=== PATIENT | female | born 1955 | race Caucasian/White ===

== ENCOUNTER → 2017-02-15 | Day surgery (SDC) | payer OTHER ==
[~2017-02-15] MED LIST: ACETAMINOPHEN/HYDROcodone 325 MG/5 MG TAB ONE; BUPIVACAINE/EPINEPHRINE 0.25% 50 ML VIAL ONE; BUPR150T3; ISOSULFAN BLUE 50 MG/5 ML VIAL SQ ONE; KRILL OIL; LEVO.15; MIDAZOLAM HCL 2 MG/2 ML VIAL ONE; NEOMYCIN/POLYMYXIN/BACITRACIN OINT 15 GM TUBE ONE; ONDANSETRON HCL 4 MG/2 ML VIAL IV PUSH ONE; OXYC-360; PROPOFOL 200 MG/20 ML AMP IV ONE; PROZ20CA11; VIT D 3; ceFAZolin 2 GM PREMIX 50 ML ONE; diphenhydrAMINE HCL 50 MG/ML VIAL ONE
--- NOTE | 2017-02-15 14:05 | TN ---
cc: ANNELIESE CAMACHO M.D. DATE OF SURGERY: 02/15/2017 PREOPERATIVE DIAGNOSIS Left breast cancer. POSTOPERATIVE DIAGNOSIS Left breast cancer. PROCEDURE PERFORMED 1. Needle-localized left breast lumpectomy. 2. Injection and excision left axillary sentinel node x2. 3. Implantation of ANASTASIIA MARIANNA device. SURGEON Anneliese Camacho MD MARKET REPORTER HUMERA Voss ANESTHESIA General LMA. COMPLICATIONS None. INDICATIONS FOR PROCEDURE Ms. Blair is a very pleasant 61-year-old female who is noted to have a mammographic abnormality in the left breast. She underwent percutaneous biopsy and was found to be a small left breast cancer. She was seen and evaluated in the office. She was offered lumpectomy and sentinel node excision versus mastectomy. She elected lumpectomy. She was also offered whole breast, partial breast and intraoperative breast irradiation. She initially chose intraoperative radiation therapy. However, her insurance company declined this and she therefore elected to go with ANASTASIIA partial breast irradiation. Risks and benefits of all procedures was discussed with her and she was agreeable. INTRAOPERATIVE FINDINGS [place] lymph node was easily identified in the left axilla with multiple blue channels going directly to it. It was slightly enlarged. It also had a 10-second count of 1004 ex vivo. The second sentinel node was not blue, was adjacent to the first node, was soft and pink and had a count of 214. DETAILS OF PROCEDURE The patient was identified, brought to the operating room and placed supine on the operating table. After adequate general anesthesia was achieved with LMA, the right breast was injected with 5 ccs of isosulfan blue in the periareolar position as well as in the wire localization which occurred in the upper outer quadrant of the left breast. This was then massaged in the breast. The left breast and axilla was then prepped and draped in standard surgical fashion. Attention was first directed to the left axilla. The approximate location of the sentinel node was marked by radiology. Using the probe we confirmed the location. 0.25% Marcaine was injected and a transverse incision was made. Dissection was carried down into the subcutaneous fat into the axilla proper. Immediately we encountered two blue channels going directly to a blue node. This was grasped with Allis clamp and dissected from surrounding tissue with a generous margin. This was excised and then checked and found to have a 10-second count, ex vivo of 1004. This was labeled sentinel node number one. Adjacent to this node was also a node that demonstrated moderate amount of activity with the probe. This was grasped with Allis clamp and dissected from surrounding tissue using electrocautery Bovie. There was no blue dye in this node. This node was soft and pink. The ex vivo count was found to be 214 on the 10-second count. After we did this there was no other blue dye in the axilla. There was no palpable nodes. There was no significant radioactivity with the probe noted. At this point we felt confident that we had the sentinel node. Wound was copiously irrigated with normal saline solution. Wound was then infiltrated with 10 ccs of 0.25% Marcaine and closed in two layers using a 3-0 and 4-0 Vicryl. Sterile dressings were applied. Next, attention was directed to the left breast. On the left breast the patient had a wire localization in the upper outer quadrant of the left breast. We elected to use a periareolar hidden scar technique. 0.25% Marcaine was injected into the skin and subcutaneous tissue from 12 o'clock to 3 o'clock. The 12 o'clock to 3 o'clock periareolar incision was then made. Subcutaneous breast tissue was then dissected with electrocautery Bovie. Next, dissection proceeded superiorly about 2 cm above the wire using electrocautery Bovie. Dissection proceeded down to the chest wall. The tip of the wire was identified. The mass was noted to be between the tip and the hugo. We therefore used generous margins in all directions to circumferentially dissect the breast tissue away from the surrounding breast tissue. Once the wire was dissected 360 degrees, it was transected at the skin and then the specimen pulled out. A short stitch was placed superior, the wire demarcated the lateral approach and the long stitch designated the medial portion of the specimen. By palpation the specimen was well-centered with generous margins in all directions. The specimen was sent down to radiology where Dr. Elizondo confirmed that the specimen was generous with the lesion noted to be in the central portion with significant margins of breast tissue circumferentially on imaging. Wound was copiously irrigated with normal saline solution. All loose bodies were removed. All bleeding points were controlled with electrocautery Bovie. Next, attention was directed to placement of the ANASTASIIA device. I elected to use lateral inferior approach to the ANASTASIIA device as this was upper outer and central lesion. 0.25% Marcaine was injected and a transverse incision was made. A subcutaneous tunnel was made with the hemostat and Liz clamp. Next, the ANASTASIIA MARIANNA device was inserted. We inflated it with 50 ccs of saline which generously filled the lumpectomy cavity. Attention was now directed to closure. Closure was accomplished using a two-layer technique, a 3-0 and 4-0 Vicryl. 10 ccs of 0.25% Marcaine was injected in the lumpectomy cavity at the end of the procedure. Sterile dressings were applied and the patient was awakened, brought to recovery in stable condition. Please note, the UNIX SYSTEMS ADMINISTRATOR assistant corporate secretary was medically necessary due to her extensive surgical knowledge and specialized training. She also has significant knowledge of my surgical technique. MD KADEEM Timmons/THERESA /1:16 PM /1:41 PM
== END | disposition home or self-care (01) ==
LOC: ESDC 06:20
PROVIDERS: ATTEND Surgery Trauma Surgery
DX: C50.412 Malignant neoplasm of upper-outer quadrant of left female breast (principal)
CPT/HCPCS: 00400; 01610; 19125; 19499; 38525; 38792; 88307; J0690; J1200; J2250; J2405; J3010; Q9968

== ENCOUNTER 2017-03-25 13:48 | Inpatient (IN) | payer OTHER ==
[~2017-03-25] VITALS: Ht 157.5 cm; Wt 58.7 kg
[~2017-03-25 13:48] MED LIST changes: -ACETAMINOPHEN/HYDROcodone 325 MG/5 MG TAB ONE; -BUPIVACAINE/EPINEPHRINE 0.25% 50 ML VIAL ONE; -ISOSULFAN BLUE 50 MG/5 ML VIAL SQ ONE; -MIDAZOLAM HCL 2 MG/2 ML VIAL ONE; -NEOMYCIN/POLYMYXIN/BACITRACIN OINT 15 GM TUBE ONE; -ONDANSETRON HCL 4 MG/2 ML VIAL IV PUSH ONE; -PROPOFOL 200 MG/20 ML AMP IV ONE; -ceFAZolin 2 GM PREMIX 50 ML ONE; -diphenhydrAMINE HCL 50 MG/ML VIAL ONE
[2017-03-25] MEDS ORDERED: ACETAMINOPHEN 325 MG TAB PO PRN (15:45)
[2017-03-25] MEDS ORDERED: PROCHLORPERAZINE INJ 10 MG/2 ML VIAL IV PUSH PRN (15:45)
[2017-03-25] MEDS ORDERED: ONDANSETRON INJ 8 MG in DEXTROSE 5% IN WATER INJ 50 ML IV PRN ×2 (15:45)
[2017-03-25] MEDS ORDERED: ALTEPLASE RECOMBINANT 2 MG VIAL IVF PRN ×2 (15:45→16:00)
[2017-03-25] MEDS ORDERED: LORazepam 0.5 MG TAB PO PRN (15:45)
[2017-03-25] MEDS ORDERED: LOPERAMIDE HCL 2 MG CAP PO PRN (15:45)
[2017-03-25] MEDS ORDERED: ALUMINUM/MAGNESIUM/SIMETH 30 ML CUP PO PRN (15:45)
[2017-03-25 15:46] VITALS: BP 114/65; PULSE 96; RESP 20; TEMP 99.9; O2SAT 99
[2017-03-25] MEDS ORDERED: SODIUM CHLORIDE 0.9% FLUSH 10 ML FLUSH IVF PRN (16:00)
--- NOTE | 2017-03-25 16:33 | PD.CONS ---
HPI History of Present Illness This is a 61 year old female with Stage IIA ER-positive left breast cancer, who was recently started on adjuvant systemic chemotherapy with Dr. Sigala. She had her chemotherapy on 03/19/17 and is now admitted with fever, neutropenia, thrombocytopenia, and abdominal cramping/pink tinged mucous from rectum. GI has been consulted for further evaluation and treatment. She reports that she had her first dose of chemotherapy with Taxotere and Cytoxan on Wednesday. Later that night and early Wednesday morning, she developed severe lower abdominal cramping with associated diarrhea consisting of small amounts of mucous. Initially, this was orange in color, but after several days, it turned to a pinkish color. The diarrhea is aggravated by oral intake. She states it doesn' t matter if she eats or drinks, she will almost immediately have to go to the bathroom. She has not been eating as much because of the abdominal cramping and has lost about 5 lbs. She has a hx of hemorrhoidectomy, fissure repair back in 1977 and states that she has since had poor sphincter tone and as a result, has had a few episodes of fecal incontinence. She denies nausea, vomiting. She has had fevers 99.5-100.0 and chills. She last had a colonoscopy 4 years ago and was told that she should have a colonoscopy every 5 years. (Drea Acevedo) PFSH Past Medical History Left breast cancer Hypothyroidism OA Osteoporosis Past Surgical History Bladder sling Left breast lumpectomy Left breast biopsy Hemorrhoidectomy Appendectomy Tonsillectomy Colonoscopy (Drea Acevdeo) Coded Allergies: erythromycin base (Unverified Allergy, Severe, 12/22/16) Sulfa (Sulfonamide Antibiotics) (Unverified Allergy, Mild, U, 12/22/16) Medications Allergies Coded Allergies Type Severity Reaction Last Updated Verified erythromycin base Allergy Severe 12/22/16 No Sulfa (Sulfonamide Antibiotics) Allergy Mild U 12/22/16 No Active Scripts Medications Dose Route/Sig Max Daily Dose Days Date Category Percocet (Oxycodone/Acetaminophen) 5 Mg/325 Mg Tab 02/21/07 Reported [Vit D 3 ] 02/18/07 Reported [Krill Oil] 02/18/07 Reported Bupropion Hcl Xl (Bupropion HCl) 150 Mg Tab 02/18/07 Reported Prozac (Fluoxetine HCl) 20 Mg Cap 02/18/07 Reported Synthroid (Levothyroxine Sodium) 150 Mcg Tab 02/18/07 Reported Family History Mother had MS, from colon cancer in her 80's Social History No tobacco, etoh, or illicit drug. (Drea Acevedo) Review of Systems Constitutional: COMPLAINS OF: Fatigue, Fever, Weight loss, Chills, Change in appetite Respiratory: DENIES: Cough Cardiovascular: DENIES: Chest pain Gastrointestinal: COMPLAINS OF: Abdominal pain, Diarrhea, Nausea, Anorexia, DENIES: Black stools, Bloody stools, Constipation, Vomiting, Swelling of Abdomen , Heartburn Musculoskeletal: COMPLAINS OF: Joint pain Hematologic/lymphatic: COMPLAINS OF: Bruising Neurologic: COMPLAINS OF: Headache Psychiatric: DENIES: Confusion (Drea Acevedo) GI Exam Vitals I&O Vital Signs Date Time Temp Pulse Resp B/P (MAP) Pulse Ox O2 Delivery O2 Flow Rate FiO2 03/25/17 15:46 99.9 96 20 114/65 (81) 99 Physical Examination HEENT: Pupils round and reactive to light; normocephalic; atraumatic; no jaundice. Throat is clear. NECK: Neck is supple, no JVD, no lymphadenopathy. CHEST: Chest is clear to auscultation and percussion. CARDIAC: Regular rate and rhythm with no murmur gallop or rubs. ABDOMEN: Soft, nondistended, nontender; no hepatosplenomegaly; bowel sounds are present in all four quadrants. EXTREMITIES: No clubbing, cyanosis, or edema. SKIN: Normal; no rash; no jaundice. GAS DERRICK OPERATOR: No focal deficits; alert and oriented times three. (Drea Acevedo) Assessment and Plan Plan ASSESSMENT: - Diarrhea, pink tinged. Started Taxotere/Cytoxan on 03/19 and started having frequent diarrhea with small amounts of mucous, initially orange and then pink tinged with small amount of blood on tissue when she wipes herself that night/early Wednesday. Multiple episodes per day, with any po intake. (+) decreased appetite, (+) abdominal cramping, (+) fever/chills. Last colonoscopy 4 years ago. Possibly secondary to chemotherapy, but will need to rule out infectious etiology. - Abdominal pain. Severe lower abdominal cramping associated with diarrhea. - Neutropenia, thrombocytopenia. WBC 1.4, H/H 12.0/36.1. Plt 68. Absolute neutrophils 0.5. Started Taxotere/Cytoxan 03/19. Received Neulasta with chemotherapy. Per hematology. - Left breast cancer, recent dx of Stage IIA ER-positive left breast cancer, who was recently started on adjuvant systemic chemotherapy with Dr. Sigala. Plan is for 4 months of chemotherapy and then radiation per patient. PLAN: - Clear liquids - IVF - Stool studies - If stool studies negative, consider antidiarrheals. - KUB pending. - Supportive care - Consider CT scan abdomen and pelvis - May need colonoscopy once neutropenia/thrombocytopenia, pending culture results/clinical status - Pt seen and examined by Dr. Dominguez and myself and this note is written on his behalf (Drea Acevedo) Physician Comments Patient seen and examined Agree with above Continue with current supportive care Monitor labs Probably will pursue endoscopy when blood counts have recovered and there's clinical improvement Await stool studies Further recommendations shall depend on her hospital course (Scott Dominguez MD) Drea Acevedo Mar 25, 2017 16:33 Scott Dominguez MD Mar 25, 2017 19:52
--- NOTE | 2017-03-25 16:51 | MH ---
cc: JOSEPH ALAMO M.D. DATE OF ADMISSION: 03/25/2017 ADMISSION DIAGNOSES 1. Breast cancer. 2. Neutropenic fever. 3. Abdominal cramps. 4. Diarrhea. 5. Pinkish discharge. HISTORY OF PRESENT ILLNESS Mrs. Blair is a 61-year-old woman newly diagnosed with a stage IIA, T1c N1a M0, ER positive left breast cancer. She had intermediate risk Oncotype DX testing and has elected to receive adjuvant chemotherapy. She has other medical problems including hypothyroidism, osteoarthritis and osteoporosis. She is recently and lives alone. Her first cycle of chemotherapy was administered on March 19, 2017. She received an On-body injector of Neulasta for support. She has felt unwell since her chemotherapy. A day prior to her admission she complains of fever at night. She had abdominal cramps lasting all night long that kept her awake. In the morning she called the clinic complaining of the symptoms of fever and abdominal cramps. Her temperature was documented to be 99.9. She reports that the temperature is higher at home. She feels chills. She has abdominal cramps and a mucousy type discharge from her stool. There is some blood tinge in the mucousy discharge from her stool. Labs in clinic showed the white cell count is 1.4, platelet count is 68,000. Her absolute neutrophil count is 300. She was admitted because of the fever and neutropenia associated with the abdominal cramps. In clinic cultures were obtained, amylase was normal, lipase is elevated. Liver function is normal. She looked ill and felt unwell. She denies any sick contact. She has trouble doing things for her at home. Her best friend who helps her is out on a cruise. She has very little help at home. She has three Chihuahuas that she has locked in the bathroom and she is worried about. PAST MEDICAL HISTORY 1. Hypothyroidism. 2. Osteoarthritis. 3. Osteoporosis. 4. ER positive left breast cancer. PAST SURGICAL HISTORY 1. Bladder sling. 2. Needle localized lumpectomy. 3. Left breast ultrasound-guided biopsy. 4. Hemorrhoid surgery. 5. Appendectomy. 6. Tonsillectomy. FAMILY HISTORY Significant for her mother with colon cancer and of colon cancer. Paternal grandmother had breast cancer. SOCIAL HISTORY She is , lives alone. She worked previously as a retail experience specialist. She never smoked. She drinks occasionally. Denies any illicit drug use. PHYSICAL EXAMINATION VITAL SIGNS: Temperature 99.9, heart rate 99, respiratory rate 18, blood pressure 104/60. GENERAL: Mrs. Blair is a well-developed, slender woman who looked ill. She looks tired. She has pallor. HEAD, EYES, EARS, NOSE AND THROAT: Her pupils are round and reactive to light and accommodation. Conjunctivae are pale. Oropharynx is clear, no thrush. NECK: Neck is supple. LUNGS: Lungs are clear. CARDIOVASCULAR: Reveals tachycardia. ABDOMEN: Diffusely tender with cramping. No rebound or guarding. Bowel sounds were present. LOWER EXTREMITIES: Lower extremities with no edema. LABORATORY DATA Significant for a white blood cell count of 1.4, ANC of 300, platelet count 68,000, lipase 60. ASSESSMENT AND PLAN Mrs. Blair is a 61-year-old woman with multiple medical problems described above. She comes in for unscheduled visit from toxicity related to her adjuvant chemotherapy with curative intent. We discussed the concern for fever, abdominal cramps and diarrhea. Evaluation for source of fever will be performed. In the meantime, in light of her neutropenia and fever empiric antibiotic therapy with cefepime will be initiated and continued. Blood cultures were obtained. We will monitor her clinically. She seems to be stable but has signs of sepsis with the tachycardia and feeling ill. She looks clinically dry as she has been unable to tolerate much p.o. GI will be consulted although I would defer until her counts recover before any procedure is performed. Stool will be checked. If C. Diff negative, we can use Imodium more liberally. I am concerned about her cramping and the pinkish discharge. Stool for Hemoccult will also be performed. Her hemoglobin will be monitored. Emotional support is provided. She was able to call some friends that will help take care of her animals. The main priority is her wellbeing. Antiemetic therapy will be available as needed. I anticipate her white count to recover given her Neulasta support administered 24 hours after her chemo. Dehydration will be corrected. Amylase and lipase will be followed. Joseph Bridgett E. Deveras, MD RAD/BJF /4:08 PM /4:22 PM
[2017-03-25] MEDS ORDERED: ENOXAPARIN SODIUM 40 MG/0.4 ML SYRINGE SQ SCH (18:00)
[2017-03-25] MEDS: traMADol HCL 50 MG TAB PO PRN (18:25)
[2017-03-25] MEDS: PANTOPRAZOLE SOD 20 MG DELAYED RELEASE TAB PO SCH (18:26)
--- NOTE | 2017-03-25 19:08 | RADRPT ---
EXAM DATE/TIME: 03/25/2017 18:41 [facility] COMPARISON: No previous studies available for comparison. INDICATIONS : Abdominal pain and cramping. MEDICAL HISTORY : None. SURGICAL HISTORY : None. ENCOUNTER: Subsequent ACUITY: 3 days PAIN SCORE: Non-responsive. LOCATION: Abdomen. FINDINGS: Supine view of the abdomen was performed. The abdominal bowel gas pattern is normal. Calcifications are seen in the pelvis. These are nonspecific. They are likely related to phleboliths. The osseous st ructures are unremarkable. CONCLUSION: No acute disease. Talat Mazariegos MD on March 25, 2017 at 19:05 Board Certified Radiologist. This report was verified electronically.
--- NOTE | 2017-03-25 19:10 | RADRPT ---
EXAM DATE/TIME: 03/25/2017 18:44 [facility] COMPARISON: No previous studies available for comparison. INDICATIONS : Fever- neutropenia. Rule out lung source. MEDICAL HISTORY : None. SURGICAL HISTORY : None. ENCOUNTER: Subsequent ACUITY: 3 days PAIN SCORE: Non-responsive. LOCATION: Bilateral chest FINDINGS: There is a CT compatible Yseunn-c-Coww placement in the left subclavian approach. The heart size is n ormal. The lungs are clear. CONCLUSION: No acute disease. Talat Mazariegos MD on March 25, 2017 at 19:08 Board Certified Radiologist. This report was verified electronically.
[2017-03-25] MEDS: CEFEPIME INJ 2,000 MG in SODIUM CHLORIDE 0.9% INJ 100 ML IV SCH (19:56)
[2017-03-25] MEDS ORDERED: CEFEPIME INJ 2,000 MG in SODIUM CHLORIDE 0.9% INJ 100 ML IV SCH (20:00)
[2017-03-25 20:05] VITALS: BP 121/62; PULSE 104; PULSE 105; RESP 14; TEMP 99.4; O2SAT 97
[2017-03-25 23:11] LABS: C. DIFF EPI 027 PRESUMPTIVE NEGATIVE (NEGATIVE)
[2017-03-25 23:45] VITALS: BP 110/60; PULSE 103; RESP 16; TEMP 98.7; O2SAT 96
[2017-03-26] VITALS (7 sets, daily range): BP systolic 90–101; BP diastolic 43–61; PULSE 77–94; RESP 14–18; TEMP 97.8–99.6; O2SAT 96–100
[2017-03-26] MEDS: CEFEPIME INJ 2,000 MG in SODIUM CHLORIDE 0.9% INJ 100 ML IV SCH ×3 (03:29→18:01)
[2017-03-26 04:11] LABS: AUTOMATED NEUTROPHIL # 1.3 TH/MM3 (1.8-7.7); BASOPHIL % 0.3 % (0.0-2.0); EOSINOPHIL # 0.1 TH/MM3 (0-0.4); EOSINOPHIL % 1.7 % (0.0-4.0); HEMATOCRIT 32.3 % (35.0-46.0); LYMPH % 31.5 % (9.0-44.0); MEAN CELL VOLUME 91.7 FL (80.0-100.0); MEAN CORPUSCULAR HEMOGLOBIN 30.7 PG (27.0-34.0); MEAN CORPUSCULAR HGB CONC 33.4 % (32.0-36.0); MONO % 26.5 % (0.0-8.0); PLATELET COUNT 68 TH/MM3 (150-450); RED BLOOD COUNT 3.52 MIL/MM3 (4.00-5.30); RED CELL DISTRIBUTION WIDTH 13.1 % (11.6-17.2); WHITE BLOOD COUNT 3.3 TH/MM3 (4.0-11.0)
[2017-03-26 04:27] LABS: ALT (GPT) 16 U/L (10-53); ANION GAP 9 MEQ/L (5-15); AST (GOT) 9 U/L (15-37); BICARBONATE 26.2 MEQ/L (21.0-32.0); BLOOD UREA NITROGEN 7 MG/DL (7-18); CHLORIDE 106 MEQ/L (98-107); GLOMERULAR FILTRATION RATE 96 ML/MIN (>89); POTASSIUM 3.5 MEQ/L (3.5-5.1); SODIUM (NA) 141 MEQ/L (136-145)
[2017-03-26 04:29] LABS: ALKALINE PHOSPHATASE 75 U/L (45-117); TOTAL BILIRUBIN ADULT 0.2 MG/DL (0.2-1.0)
[2017-03-26 04:31] LABS: HEMO FLAGS AUTO DIFF
[2017-03-26 05:01] LABS: BANDS 25 % (0-6); EOSINOPHILS 1 % (0-4); METAMYELOCYTES 3 % (0-1); MYELOCYTES 2 % (0-0); NEUTROPHIL # MANUAL DIFF 1.2 TH/MM3 (1.8-7.7); PLATELET ESTIMATE SMEAR LOW (NORMAL); POLYS (SEG NEUTROPHILS) 5 % (16-70); PROMYELOCYTES 1 % (0-0); SCAN/DIFF FINAL DIFF MANUAL; WBC DIFF SAMPLE 100
[2017-03-26 05:02] LABS: DOHLE BODIES PRESENT (NONE SEEN); PLATELET MORPHOLOGY ENLARGED (NORMAL)
[2017-03-26] MEDS: traMADol HCL 50 MG TAB PO PRN (05:12)
[2017-03-26] MEDS ORDERED: BUTA1CAP PO (05:27)
[2017-03-26] MEDS ORDERED: DEXT 5%-NACL 0.9% 1000 ML INJ 500 ML IV ONE (08:45)
[2017-03-26] MEDS ORDERED: DEXT 5%-NACL 0.9% 500 ML INJ 500 ML IV ONE (08:45)
[2017-03-26] MEDS ORDERED: ACETAMINOPHEN 325 MG TAB PO ONE (08:45)
[2017-03-26] MEDS: PANTOPRAZOLE SOD 20 MG DELAYED RELEASE TAB PO SCH (09:48)
--- NOTE | 2017-03-26 13:13 | HHI.GIFU ---
Subjective Remarks Pt resting in bed comfortably. Reports 2 BMs today with continued pinkish mucous in them. Mild, diffuse abdominal pain. Denies nausea, vomiting. Reports decreased appetite. Ate approx 1/3 of her breakfast, has not had lunch yet. (Drea Acevedo) Objective Vitals I&O Vital Signs Date Time Temp Pulse Resp B/P (MAP) Pulse Ox O2 Delivery O2 Flow Rate FiO2 03/26/17 12:58 98.7 79 16 90/43 (59) 97 03/26/17 09:47 97.8 94 16 101/52 (68) 96 03/26/17 03:27 99.1 91 14 98/50 (66) 97 03/25/17 23:45 98.7 103 16 110/60 (77) 96 03/25/17 20:05 104 03/25/17 20:05 99.4 105 14 121/62 (81) 97 03/25/17 15:46 99.9 96 20 114/65 (81) 99 I/O 03/25/17 03/25/17 03/25/17 03/26/17 03/26/17 03/26/17 07:00 15:00 23:00 07:00 15:00 23:00 Intake Total 100 ml 580 ml 101 ml Output Total 300 ml 950 ml Balance 100 ml 280 ml -849 ml Intake Oral 480 ml IV Total 100 ml 100 ml 101 ml Output Urine Total 300 ml 950 ml # Voids 1 3 # Bowel Movements 3 Laboratory Laboratory Tests Test 03/25/17 20:43 03/26/17 03:35 Stool C. difficile Toxin (PCR) NEGATIVE Stl C. difficile Toxin Epiderm 027 PRESUMPTIVE NEGATIVE White Blood Count 3.3 Red Blood Count 3.52 Hemoglobin 10.8 Hematocrit 32.3 Mean Corpuscular Volume 91.7 Mean Corpuscular Hemoglobin 30.7 Mean Corpuscular Hemoglobin Concent 33.4 Red Cell Distribution Width 13.1 Platelet Count 68 Mean Platelet Volume 9.4 Neutrophils (%) (Auto) 40.0 Lymphocytes (%) (Auto) 31.5 Monocytes (%) (Auto) 26.5 Eosinophils (%) (Auto) 1.7 Basophils (%) (Auto) 0.3 Neutrophils # (Auto) 1.3 Lymphocytes # (Auto) 1.0 Monocytes # (Auto) 0.9 Eosinophils # (Auto) 0.1 Basophils # (Auto) 0.0 CBC Comment AUTO DIFF Differential Total Cells Counted 100 Neutrophils % (Manual) 5 Band Neutrophils % 25 Lymphocytes % 39 Monocytes % 24 Eosinophils % 1 Neutrophils # (Manual) 1.2 Metamyelocytes 3 Myelocytes 2 Promyelocytes 1 Differential Comment FINAL DIFF MANUAL Dohle Bodies PRESENT Platelet Estimate LOW Platelet Morphology Comment ENLARGED Red Cell Morphology Comment NORMAL Blood Urea Nitrogen 7 Creatinine 0.63 Random Glucose 88 Total Protein 5.5 Albumin 2.6 Calcium Level 8.1 Alkaline Phosphatase 75 Aspartate Amino Transf (AST/SGOT) 9 Alanine Aminotransferase (ALT/SGPT) 16 Total Bilirubin 0.2 Sodium Level 141 Potassium Level 3.5 Chloride Level 106 Carbon Dioxide Level 26.2 Anion Gap 9 Estimat Glomerular Filtration Rate 96 Lipase 52 Date/Time Source Procedure Growth Status 03/25/17 20:43 Stool Stool Cyclospora Exam Pending Resulted 03/25/17 20:43 Stool Stool Cryptosporidium Exam Pending Resulted 03/25/17 20:43 Stool Stool Stool Pus (ROMINA) - Final MANY WBC'S Resulted 03/25/17 20:43 Stool Stool Giardia Antigen ([facility]INA) Pending Resulted Imaging Last Impressions Chest X-Ray 03/25/17 0000 Signed Impressions: Service Date/Time: March 18:44 - CONCLUSION: No acute disease. Talat Mazariegos MD Abdomen X-Ray 03/25/17 0000 Signed Impressions: Service Date/Time: March 18:41 - CONCLUSION: No acute disease. Talat Mazariegos MD Physical Exam HEENT: Normocephalic; atraumatic; no jaundice. CHEST: CTA, diminished CARDIAC: RRR ABDOMEN: Soft, nondistended, mild diffuse tenderness; no hepatosplenomegaly; bowel sounds are present in all four quadrants. EXTREMITIES: No clubbing, cyanosis, or edema. SKIN: Normal; no rash; no jaundice. DEVELOPMENT CONSULTANT: No focal deficits; alert and oriented times three. (Drea Acevedo) Assessment and Plan Plan ASSESSMENT: - Diarrhea, pink tinged. Started Taxotere/Cytoxan on 03/19 and started having frequent diarrhea with small amounts of mucous, initially orange and then pink tinged with small amount of blood on tissue when she wipes herself that night/early Wednesday. Multiple episodes per day, with any po intake. (+) decreased appetite, (+) abdominal cramping, (+) fecal urgency (+) fever/chills. Last colonoscopy 4 years ago. Possibly secondary to chemotherapy, but will need to rule out infectious etiology. C Diff culture negative. Stool occult blood positive. Stool culture pending. 2 episodes of diarrhea today with continued pink tinged mucous. - Abdominal pain. Severe lower abdominal cramping associated with diarrhea. Has not had any episodes since yesterday. Does report some mild diffuse abdominal pain. KUB (03/25/17) --> No acute disease. - Neutropenia, thrombocytopenia. WBC 3.3, H/H 10.8/32.3. Plt 68. Started Taxotere/Cytoxan 03/19. Received Neulasta with chemotherapy. Per hematology. - Left breast cancer, recent dx of Stage IIA ER-positive left breast cancer, who was recently started on adjuvant systemic chemotherapy with Dr. Sigala. Plan is for 4 months of chemotherapy and then radiation per patient. PLAN: - [facility] - Stool studies pending - Imodium PRN - Supportive care - If stool studies are negative and clinical improvement then may pursue endoscopy early next week if labs are stable - Further recommendations to follow based on results of above - Pt seen and examined by Dr. Dominguez and myself and this note is written on his behalf (Drea Acevedo) Physician Comments Patient seen and examined Agree with above Continue with current supportive care Monitor labs (Scott Dominguez MD) Drea Acevedo Mar 26, 2017 13:13 Scott Dominguez MD Mar 26, 2017 17:47
--- NOTE | 2017-03-26 13:57 | PD.ONC.PN ---
Subjective Subjective Remarks Tmax 99.9 overnight. Patient resting in bed in nad. Mucous still present in bowel movements. Has a mild frontal headache present since this morning. Objective Data Date Time Temp Pulse Resp B/P (MAP) Pulse Ox O2 Delivery O2 Flow Rate FiO2 03/26/17 12:58 98.7 79 16 90/43 (59) 97 03/26/17 09:47 97.8 94 16 101/52 (68) 96 03/26/17 03:27 99.1 91 14 98/50 (66) 97 03/25/17 23:45 98.7 103 16 110/60 (77) 96 03/25/17 20:05 104 03/25/17 20:05 99.4 105 14 121/62 (81) 97 03/25/17 15:46 99.9 96 20 114/65 (81) 99 03/26/17 03/26/17 03/26/17 07:00 15:00 23:00 Intake Total 580 ml 101 ml Output Total 300 ml 950 ml Balance 280 ml -849 ml Result Diagram: 03/26/17 0335 03/26/17 0335 Laboratory Results Laboratory Tests Test 03/25/17 20:43 03/26/17 03:35 Stool C. difficile Toxin (PCR) NEGATIVE Stl C. difficile Toxin Epiderm 027 PRESUMPTIVE NEGATIVE White Blood Count 3.3 TH/MM3 Red Blood Count 3.52 MIL/MM3 Hemoglobin 10.8 GM/DL Hematocrit 32.3 % Mean Corpuscular Volume 91.7 FL Mean Corpuscular Hemoglobin 30.7 PG Mean Corpuscular Hemoglobin Concent 33.4 % Red Cell Distribution Width 13.1 % Platelet Count 68 TH/MM3 Mean Platelet Volume 9.4 FL Neutrophils (%) (Auto) 40.0 % Lymphocytes (%) (Auto) 31.5 % Monocytes (%) (Auto) 26.5 % Eosinophils (%) (Auto) 1.7 % Basophils (%) (Auto) 0.3 % Neutrophils # (Auto) 1.3 TH/MM3 Lymphocytes # (Auto) 1.0 TH/MM3 Monocytes # (Auto) 0.9 TH/MM3 Eosinophils # (Auto) 0.1 TH/MM3 Basophils # (Auto) 0.0 TH/MM3 CBC Comment AUTO DIFF Differential Total Cells Counted 100 Neutrophils % (Manual) 5 % Band Neutrophils % 25 % Lymphocytes % 39 % Monocytes % 24 % Eosinophils % 1 % Neutrophils # (Manual) 1.2 TH/MM3 Metamyelocytes 3 % Myelocytes 2 % Promyelocytes 1 % Differential Comment FINAL DIFF MANUAL Dohle Bodies PRESENT Platelet Estimate LOW Platelet Morphology Comment ENLARGED Red Cell Morphology Comment NORMAL Blood Urea Nitrogen 7 MG/DL Creatinine 0.63 MG/DL Random Glucose 88 MG/DL Total Protein 5.5 GM/DL Albumin 2.6 GM/DL Calcium Level 8.1 MG/DL Alkaline Phosphatase 75 U/L Aspartate Amino Transf (AST/SGOT) 9 U/L Alanine Aminotransferase (ALT/SGPT) 16 U/L Total Bilirubin 0.2 MG/DL Sodium Level 141 MEQ/L Potassium Level 3.5 MEQ/L Chloride Level 106 MEQ/L Carbon Dioxide Level 26.2 MEQ/L Anion Gap 9 MEQ/L Estimat Glomerular Filtration Rate 96 ML/MIN Lipase 52 U/L Culture Results Microbiology Date/Time Source Procedure Growth Status 03/25/17 20:43 Stool Stool Cyclospora Exam Pending Resulted 03/25/17 20:43 Stool Stool Cryptosporidium Exam Pending Resulted 03/25/17 20:43 Stool Stool Stool Pus (ROMINA) - Final MANY WBC'S Resulted 03/25/17 20:43 Stool Stool Giardia Antigen (ROMINA) Pending Resulted 03/25/17 20:43 Stool Stool Pending Received 03/25/17 20:43 Stool Stool Stool Occult Blood (ROMINA) - Final HEMOCCULT POSITIVE Complete Administered Medications Medications (Trade) Dose Ordered Sig/Jacinda Route PRN Reason Start Time Stop Time Status Last Admin Dose Admin Oxycodone HCl (Roxicodone) 5 mg Q3H PRN PO PAIN SCALE 4 TO 7 03/25/17 15:45 03/26/17 13:03 Cefepime HCl 2000 mg/Sodium Chloride 100 ml @ 200 mls/hr Q8H IV 03/25/17 18:00 03/26/17 09:49 Pantoprazole Sodium (Protonix) 20 mg DAILY PO 03/25/17 16:30 03/26/17 09:48 Tramadol HCl (Ultram) 50 mg Q6H PRN PO ARTHRITIS 03/25/17 16:30 03/26/17 05:12 Objective Remarks GENERAL: Middle aged female sitting up in bed in [employer]. SKIN: Warm and dry. HEAD: Normocephalic. EYES: No injection or drainage. NECK: Supple, trachea midline. CARDIOVASCULAR: Regular rate and rhythm RESPIRATORY: anterior peralta clear. GASTROINTESTINAL: Abdomen soft, non-tender, nondistended. EXTREMITIES: No cyanosis NEUROLOGICAL: awake and alert, normal speech. moving all extremities. Assessment/Plan Problem List: (1) Breast cancer ICD Codes: C50.919 - Malignant neoplasm of unspecified site of unspecified female breast Plan: plan for outpatient therapy --first cycle of chemotherapy was administered on March 19, 2017. --received an On-body injector of Neulasta for support. --as felt unwell since her chemotherapy. --A day prior to her admission she complains of fever at night. She had abdominal cramps lasting all night long that kept her awake. --has abdominal cramps and a mucous type discharge from her stool. There is some blood tinge in the mucous discharge from her stool. (2) Pancytopenia ICD Codes: D61.818 - Other pancytopenia Plan: --on Cefepime --fever, abdominal cramps and diarrhea. --blood cultures no growth --stool cultures pending (3) Diarrhea ICD Codes: R19.7 - Diarrhea, unspecified Plan: --GI following. --stool studies pending Assessment 61y/o female with newly diagnosed with a stage IIA, T1c N1a M0, ER positive left breast cancer. She had intermediate risk Oncotype DX testing and has elected to receive adjuvant chemotherapy. Admitted for neutropenia. Hypothyroidism. Osteoarthritis. Osteoporosis. ER positive left breast cancer. Plan 1. continue antibiotics 2. await stool studies 3. monitor CBC Attending Statement The exam, history, and the medical decision-making described in the above note were completed with the assistance of the mid-level provider. I reviewed and agree with the findings presented. I attest that I had a [id number] encounter with the patient on the same day, and personally performed and documented my assessment and findings in the medical record. Feeling still tired in AM. Noted clinically dry. Heme positive, stop DVT prophylaxis. GI consult appreciated, continue supportive care. Neutropenia resolving. Problem Qualifiers (1) Diarrhea: Qualified Codes: A09 - Infectious gastroenteritis and colitis, unspecified Lexy Verdugo Mar 26, 2017 13:57 Sofía Sigala MD Mar 26, 2017 19:19
[2017-03-27] VITALS (7 sets, daily range): BP systolic 96–110; BP diastolic 54–66; PULSE 80–92; RESP 16–18; TEMP 98.7–100; O2SAT 96–97
[2017-03-27] MEDS: CEFEPIME INJ 2,000 MG in SODIUM CHLORIDE 0.9% INJ 100 ML IV SCH ×2 (03:36→09:48)
[2017-03-27 06:30] LABS: HEMATOCRIT 31.3 % (35.0-46.0); MEAN CELL VOLUME 91.7 FL (80.0-100.0); MEAN CORPUSCULAR HGB CONC 33.8 % (32.0-36.0); PLATELET COUNT 92 TH/MM3 (150-450); RED BLOOD COUNT 3.41 MIL/MM3 (4.00-5.30); RED CELL DISTRIBUTION WIDTH 13.1 % (11.6-17.2); WHITE BLOOD COUNT 16.9 TH/MM3 (4.0-11.0)
[2017-03-27 07:05] LABS: ANION GAP 7 MEQ/L (5-15); AST (GOT) 13 U/L (15-37); BICARBONATE 26.5 MEQ/L (21.0-32.0); BLOOD UREA NITROGEN 6 MG/DL (7-18); CHLORIDE 109 MEQ/L (98-107); GLOMERULAR FILTRATION RATE 88 ML/MIN (>89); POTASSIUM 3.6 MEQ/L (3.5-5.1); SODIUM (NA) 142 MEQ/L (136-145)
[2017-03-27 07:09] LABS: ALKALINE PHOSPHATASE 81 U/L (45-117); ALT (GPT) 13 U/L (10-53); TOTAL BILIRUBIN ADULT 0.1 MG/DL (0.2-1.0)
[2017-03-27 07:30] LABS: HEMO FLAGS AUTO DIFF
[2017-03-27 07:33] LABS: BANDS 28 % (0-6); BASOPHILS 1 % (0-2); DOHLE BODIES PRESENT (NONE SEEN); METAMYELOCYTES 7 % (0-1); MYELOCYTES 4 % (0-0); NEUTROPHIL # MANUAL DIFF 14.2 TH/MM3 (1.8-7.7); PLATELET ESTIMATE SMEAR LOW (NORMAL); PLATELET MORPHOLOGY NORMAL (NORMAL); POLYS (SEG NEUTROPHILS) 45 % (16-70); TOXIC GRANULATION 2+ (NORMAL); WBC DIFF SAMPLE 100
[2017-03-27 07:34] LABS: SCAN/DIFF FINAL DIFF MANUAL
[2017-03-27] MEDS: PANTOPRAZOLE SOD 20 MG DELAYED RELEASE TAB PO SCH (09:48)
--- NOTE | 2017-03-27 12:12 | HHI.GIFU ---
Subjective Remarks Pt resting in bed. C/o migraine. No BM today. Some abd discomfort after eating dinner but improved. (Luisa Ortiz) Objective Vitals I&O Vital Signs Date Time Temp Pulse Resp B/P (MAP) Pulse Ox O2 Delivery O2 Flow Rate FiO2 03/27/17 04:18 89 03/27/17 03:34 99.3 89 18 96/54 (68) 97 03/26/17 23:57 99.6 82 18 99/53 (68) 97 03/26/17 20:00 83 03/26/17 19:52 99.2 92 18 96/61 (73) 100 03/26/17 15:46 98.7 77 16 98/56 (70) 98 03/26/17 12:58 98.7 79 16 90/43 (59) 97 I/O 03/26/17 03/26/17 03/26/17 03/27/17 03/27/17 03/27/17 07:00 15:00 23:00 07:00 15:00 23:00 Intake Total 580 ml 101 ml 601 ml 480 ml Output Total 300 ml 950 ml 900 ml 700 ml Balance 280 ml -849 ml -299 ml -220 ml Intake Oral 480 ml 480 ml IV Total 100 ml 101 ml 601 ml Output Urine Total 300 ml 950 ml 900 ml 700 ml # Voids 3 Laboratory Laboratory Tests Test 03/27/17 05:37 White Blood Count 16.9 Red Blood Count 3.41 Hemoglobin 10.6 Hematocrit 31.3 Mean Corpuscular Volume 91.7 Mean Corpuscular Hemoglobin 31.0 Mean Corpuscular Hemoglobin Concent 33.8 Red Cell Distribution Width 13.1 Platelet Count 92 Mean Platelet Volume 9.4 CBC Comment AUTO DIFF Differential Total Cells Counted 100 Neutrophils % (Manual) 45 Band Neutrophils % 28 Lymphocytes % 9 Monocytes % 6 Basophils % 1 Neutrophils # (Manual) 14.2 Metamyelocytes 7 Myelocytes 4 Differential Comment FINAL DIFF MANUAL Toxic Granulation 2+ Dohle Bodies PRESENT Platelet Estimate LOW Platelet Morphology Comment NORMAL Blood Urea Nitrogen 6 Creatinine 0.68 Random Glucose 90 Total Protein 5.7 Albumin 2.4 Calcium Level 8.2 Alkaline Phosphatase 81 Aspartate Amino Transf (AST/SGOT) 13 Alanine Aminotransferase (ALT/SGPT) 13 Total Bilirubin 0.1 Sodium Level 142 Potassium Level 3.6 Chloride Level 109 Carbon Dioxide Level 26.5 Anion Gap 7 Estimat Glomerular Filtration Rate 88 Date/Time Source Procedure Growth Status 03/25/17 20:43 Stool Stool Cyclospora Exam - Final NO CYCLOSPORA SEEN Resulted 03/25/17 20:43 Stool Stool Cryptosporidium Exam Pending Resulted 03/25/17 20:43 Stool Stool Stool Pus (ROMINA) - Final MANY WBC'S Resulted 03/25/17 20:43 Stool Stool Giardia Antigen (ROMINA) Pending Resulted Imaging Last Impressions Chest X-Ray 03/25/17 0000 Signed Impressions: Service Date/Time: March 18:44 - CONCLUSION: No acute disease. Talat Mazariegos MD Abdomen X-Ray 03/25/17 0000 Signed Impressions: Service Date/Time: March 18:41 - CONCLUSION: No acute disease. Talat Mazariegos MD Physical Exam HEENT: Normocephalic; atraumatic; no jaundice. CHEST: CTA, diminished CARDIAC: RRR ABDOMEN: Soft, nondistended, mild diffuse tenderness; no hepatosplenomegaly; bowel sounds are present in all four quadrants. EXTREMITIES: No clubbing, cyanosis, or edema. SKIN: Normal; no rash; no jaundice. 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 (Luisa Ortiz [facility]) Assessment and Plan Plan ASSESSMENT: - Diarrhea, pink tinged. Started Taxotere/Cytoxan on 03/19 and started having frequent diarrhea with small amounts of mucous, initially orange and then pink tinged with small amount of blood on tissue when she wipes herself that night/early Wednesday. Multiple episodes per day, with any po intake. (+) decreased appetite, (+) abdominal cramping, (+) fecal urgency (+) fever/chills. Last colonoscopy 4 years ago. Possibly secondary to chemotherapy, but will need to rule out infectious etiology. C Diff culture negative. Stool occult blood positive. No BM today. +many WBCs stool. enteric pathogens neg. giardia & cryptosporidia pending. - Abdominal pain. seems improved, had some discomfort yesterday after dinner but it improved. none today. KUB (03/25/17) --> No acute disease. - Neutropenia, thrombocytopenia. WBC up to 16 today Started Taxotere/Cytoxan . Received Neulasta with chemotherapy. Per hematology. - Left breast cancer, recent dx of Stage IIA ER-positive left breast cancer, who was recently started on adjuvant systemic chemotherapy with Dr. Sigala. Plan is for 4 months of chemotherapy and then radiation per patient. PLAN: - [facility] - await giardia, cryptosporidia - Imodium PRN - Supportive care - ?endoscopy next week - Further recommendations to follow based on results of above - Pt seen and examined by Dr. Dominguez and myself and this note is written on his behalf (Luisa Ortiz) Physician Comments Patient seen and examined Agree with above Continue with current supportive care Monitor labs We'll proceed with EGD and a colonoscopy on Wednesday (Scott Dominguez MD) Luisa Ortiz Mar 27, 2017 12:11 Scott Dominguez MD Mar 27, 2017 20:30
[2017-03-27] MEDS ORDERED: SUMAtriptan SUCCINATE 50 MG TAB PO PRN (12:15)
--- NOTE | 2017-03-27 12:16 | PD.ONC.PN ---
Subjective Subjective Remarks Afebrile overnight. Patient having global headache which she describes as a migraine. She states she has frequently had these in the past and they are usually improved with Imitrex. She states she has had them in increasing frequency since her chemotherapy was administered last week. Objective Data Date Time Temp Pulse Resp B/P (MAP) Pulse Ox O2 Delivery O2 Flow Rate FiO2 03/27/17 04:18 89 03/27/17 03:34 99.3 89 18 96/54 (68) 97 03/26/17 23:57 99.6 82 18 99/53 (68) 97 03/26/17 20:00 83 03/26/17 19:52 99.2 92 18 96/61 (73) 100 03/26/17 15:46 98.7 77 16 98/56 (70) 98 03/26/17 12:58 98.7 79 16 90/43 (59) 97 03/27/17 03/27/17 03/27/17 07:00 15:00 23:00 Intake Total 480 ml Output Total 700 ml Balance -220 ml Result Diagram: 03/27/17 0537 03/27/17 0537 Laboratory Results Laboratory Tests Test 03/27/17 05:37 White Blood Count 16.9 TH/MM3 Red Blood Count 3.41 MIL/MM3 Hemoglobin 10.6 GM/DL Hematocrit 31.3 % Mean Corpuscular Volume 91.7 FL Mean Corpuscular Hemoglobin 31.0 PG Mean Corpuscular Hemoglobin Concent 33.8 % Red Cell Distribution Width 13.1 % Platelet Count 92 TH/MM3 Mean Platelet Volume 9.4 FL CBC Comment AUTO DIFF Differential Total Cells Counted 100 Neutrophils % (Manual) 45 % Band Neutrophils % 28 % Lymphocytes % 9 % Monocytes % 6 % Basophils % 1 % Neutrophils # (Manual) 14.2 TH/MM3 Metamyelocytes 7 % Myelocytes 4 % Differential Comment FINAL DIFF MANUAL Toxic Granulation 2+ Dohle Bodies PRESENT Platelet Estimate LOW Platelet Morphology Comment NORMAL Blood Urea Nitrogen 6 MG/DL Creatinine 0.68 MG/DL Random Glucose 90 MG/DL Total Protein 5.7 GM/DL Albumin 2.4 GM/DL Calcium Level 8.2 MG/DL Alkaline Phosphatase 81 U/L Aspartate Amino Transf (AST/SGOT) 13 U/L Alanine Aminotransferase (ALT/SGPT) 13 U/L Total Bilirubin 0.1 MG/DL Sodium Level 142 MEQ/L Potassium Level 3.6 MEQ/L Chloride Level 109 MEQ/L Carbon Dioxide Level 26.5 MEQ/L Anion Gap 7 MEQ/L Estimat Glomerular Filtration Rate 88 ML/MIN Culture Results Microbiology Date/Time Source Procedure Growth Status 03/25/17 20:43 Stool Stool Cyclospora Exam - Final NO CYCLOSPORA SEEN Resulted 03/25/17 20:43 Stool Stool Cryptosporidium Exam Pending Resulted 03/25/17 20:43 Stool Stool Stool Pus (ROMINA) - Final MANY WBC'S Resulted 03/25/17 20:43 Stool Stool Giardia Antigen (ROMINA) Pending Resulted 03/25/17 20:43 Stool Stool - Final NO ENTERIC PATHOGENS DETECTED BY PCR... Complete 03/25/17 20:43 Stool Stool Stool Occult Blood (ROMINA) - Final HEMOCCULT POSITIVE Complete Administered Medications Medications (Trade) Dose Ordered Sig/Jacinda Route PRN Reason Start Time Stop Time Status Last Admin Dose Admin Lorazepam (Ativan) 0.5 mg DAILY PRN PO anxiety or before procedure 03/25/17 15:45 03/26/17 23:58 Oxycodone HCl (Roxicodone) 5 mg Q3H PRN PO PAIN SCALE 4 TO 7 03/25/17 15:45 03/27/17 03:41 Acetaminophen (Tylenol) 650 mg Q4H PRN PO PAIN SCALE 0-3 OR TEMP> 100.5F 03/25/17 15:45 03/26/17 19:48 Sodium Chloride (NS Flush) 5 ml UNSCH PRN IVF SEE PROTOCOL 03/25/17 16:00 03/27/17 09:48 Pantoprazole Sodium (Protonix) 20 mg DAILY PO 03/25/17 16:30 03/27/17 09:48 Objective Remarks GENERAL: Middle aged female supine in bed in quiet dark room. SKIN: Warm and dry. HEAD: Normocephalic. EYES: No injection or drainage. NECK: Supple, trachea midline. CARDIOVASCULAR: Regular rate and rhythm RESPIRATORY: Breath sounds equal bilaterally. No accessory muscle use. GASTROINTESTINAL: Abdomen soft, non-tender, nondistended. EXTREMITIES: No cyanosis NEUROLOGICAL: No obvious focal deficit. Awake, alert, and oriented x3. Assessment/Plan Problem List: (1) Breast cancer ICD Codes: C50.919 - Malignant neoplasm of unspecified site of unspecified female breast Plan: plan for outpatient therapy --first cycle of chemotherapy was administered on March 19, 2017. --received an On-body injector of Neulasta for support. --as felt unwell since her chemotherapy. --A day prior to her admission she complains of fever at night. She had abdominal cramps lasting all night long that kept her awake. --has abdominal cramps and a mucous type discharge from her stool. There is some blood tinge in the mucous discharge from her stool. (2) Pancytopenia ICD Codes: D61.818 - Other pancytopenia Plan: --03/27: stop Cefepime, start Levaquin --fever, abdominal cramps and diarrhea. --blood cultures no growth --stool cultures pending (3) Diarrhea ICD Codes: R19.7 - Diarrhea, unspecified Plan: --GI following. --stool studies pending Assessment 61y/o female with newly diagnosed with a stage IIA, T1c N1a M0, ER positive left breast cancer. She had intermediate risk Oncotype DX testing and has elected to receive adjuvant chemotherapy. Admitted for neutropenia. Hypothyroidism. Osteoarthritis. Osteoporosis. ER positive left breast cancer. Plan 1. stop Cefepime, start Levaquin 2. start IVF 3. obtain MRI brain for headache 4. ok to give Imitrex for headache. Attending Statement The exam, history, and the medical decision-making described in the above note were completed with the assistance of the mid-level provider. I reviewed and agree with the findings presented. I attest that I had a [id number] encounter with the patient on the same day, and personally performed and documented my assessment and findings in the medical record. 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 Offered Imitrex, monitor response. Still nausea, clinically dry. Neutropenia resolved. Abd cramps resolved, no diarrhea this AM. Switch to oral antibiotic. Monitor cultures and low grade temp. Anticipate DC home tomorrow. Problem Qualifiers (1) Diarrhea: Qualified Codes: A09 - Infectious gastroenteritis and colitis, unspecified Lexy Verdugo Mar 27, 2017 12:16 Sofía Sigala MD Mar 27, 2017 19:46
[2017-03-27] MEDS: SODIUM CHLOR 0.9% 1000 ML INJ 1,000 ML IV SCH ×2 (13:33→21:58)
[2017-03-27] MEDS ORDERED: GADODIAMIDE PF 287 MG/ML 10 ML VIAL (for RAD MRI) IVCONTRAST ONE (15:50)
--- NOTE | 2017-03-27 17:48 | RADRPT ---
EXAM DATE/TIME: 03/27/2017 11:00 [place] COMPARISON: No previous studies available for comparison. INDICATIONS : Cephalgia. CONTRAST: 10 cc Omniscan (gadodiamide) IV MEDICAL HISTORY : Carcinoma, breast. SURGICAL HISTORY : Tonsillectomy. Appendectomy. ORIF Right arm ENCOUNTER: Initial ACUITY: 1 day PAIN SCORE: 5/10 LOCATION: cranial TECHNIQUE: Multiplanar, multisequence MRI of the brain was performed both prior to and following the administrat ion of paramagnetic contrast. FINDINGS: Diffusion weighted images demonstrate no evidence for acute infarction. The bone marrow signal intens ity is normal. The signal intensity of the brain is normal. No hemorrhage or mass. There is no eviden ce for metastatic disease to the brain. CONCLUSION: Normal examination. Kannan Worthington MD on March 27, 2017 at 17:44 Board Certified Radiologist. This report was verified electronically.
[2017-03-28] VITALS: BP 122/79; PULSE 82; RESP 15; TEMP 98.4; O2SAT 97
[2017-03-28 04:00] VITALS: BP 114/70; PULSE 81; RESP 16; TEMP 98.3; O2SAT 98
[2017-03-28 05:53] LABS: AUTOMATED NEUTROPHIL # 12.2 TH/MM3 (1.8-7.7); BASOPHIL % 0.2 % (0.0-2.0); EOSINOPHIL # 0.1 TH/MM3 (0-0.4); EOSINOPHIL % 0.5 % (0.0-4.0); HEMATOCRIT 32.4 % (35.0-46.0); LYMPH % 10.5 % (9.0-44.0); LYMPHOCYTE # 1.6 TH/MM3 (1.0-4.8); MEAN CELL VOLUME 90.8 FL (80.0-100.0); MEAN CORPUSCULAR HEMOGLOBIN 30.4 PG (27.0-34.0); MEAN CORPUSCULAR HGB CONC 33.5 % (32.0-36.0); MONO % 7.2 % (0.0-8.0); NEUT % 81.6 % (16.0-70.0); PLATELET COUNT 115 TH/MM3 (150-450); RED BLOOD COUNT 3.56 MIL/MM3 (4.00-5.30); RED CELL DISTRIBUTION WIDTH 13.4 % (11.6-17.2); WHITE BLOOD COUNT 14.9 TH/MM3 (4.0-11.0)
[2017-03-28 06:13] LABS: HEMO FLAGS AUTO DIFF
[2017-03-28 08:00] VITALS: BP 114/64; PULSE 78; RESP 16; TEMP 98.4; O2SAT 97
[2017-03-28] MEDS ORDERED: LEVOFLOXACIN 500 MG TAB PO SCH (09:00)
[2017-03-28 09:01] LABS: BANDS 15 % (0-6); BLASTS 2 % (0-0); EOSINOPHILS 1 % (0-4); METAMYELOCYTES 5 % (0-1); MYELOCYTES 5 % (0-0); POLYS (SEG NEUTROPHILS) 61 % (16-70); PROMYELOCYTES 1 % (0-0); WBC DIFF SAMPLE 100
[2017-03-28 09:03] LABS: PLATELET ESTIMATE SMEAR LOW (NORMAL)
[2017-03-28 09:04] LABS: DOHLE BODIES PRESENT (NONE SEEN)
[2017-03-28 09:05] LABS: PLATELET MORPHOLOGY NORMAL (NORMAL); SCAN/DIFF FINAL DIFF MANUAL; TOXIC GRANULATION 2+ (NORMAL)
[2017-03-28] MEDS: PANTOPRAZOLE SOD 20 MG DELAYED RELEASE TAB PO SCH (09:57)
--- NOTE | 2017-03-28 10:06 | PD.ONC.PN ---
Subjective Subjective Remarks Tmax 100F overnight. Patient headache gone today. Feeling much improved. Had a small loose stool overnight. Did not seen any mucous. Hoping to go home today. Objective Data Date Time Temp Pulse Resp B/P (MAP) Pulse Ox O2 Delivery O2 Flow Rate FiO2 03/28/17 04:00 98.3 81 16 114/70 (85) 98 03/28/17 00:00 98.4 82 15 122/79 (93) 97 03/27/17 21:00 98.7 80 16 106/60 (75) 97 03/27/17 20:00 92 03/27/17 18:38 100.0 85 16 102/63 (76) 96 03/27/17 12:30 98.8 80 16 110/66 (81) 97 03/28/17 03/28/17 03/28/17 07:00 15:00 23:00 Output Total 1000 ml Balance -1000 ml Result Diagram: 03/28/17 0510 03/27/17 0537 Laboratory Results Laboratory Tests Test 03/28/17 05:10 White Blood Count 14.9 TH/MM3 Red Blood Count 3.56 MIL/MM3 Hemoglobin 10.8 GM/DL Hematocrit 32.4 % Mean Corpuscular Volume 90.8 FL Mean Corpuscular Hemoglobin 30.4 PG Mean Corpuscular Hemoglobin Concent 33.5 % Red Cell Distribution Width 13.4 % Platelet Count 115 TH/MM3 Mean Platelet Volume 8.9 FL Neutrophils (%) (Auto) 81.6 % Lymphocytes (%) (Auto) 10.5 % Monocytes (%) (Auto) 7.2 % Eosinophils (%) (Auto) 0.5 % Basophils (%) (Auto) 0.2 % Neutrophils # (Auto) 12.2 TH/MM3 Lymphocytes # (Auto) 1.6 TH/MM3 Monocytes # (Auto) 1.1 TH/MM3 Eosinophils # (Auto) 0.1 TH/MM3 Basophils # (Auto) 0.0 TH/MM3 CBC Comment AUTO DIFF Differential Total Cells Counted 100 Neutrophils % (Manual) 61 % Band Neutrophils % 15 % Lymphocytes % 6 % Monocytes % 4 % Eosinophils % 1 % Neutrophils # (Manual) 13.0 TH/MM3 Metamyelocytes 5 % Myelocytes 5 % Promyelocytes 1 % Differential Comment FINAL DIFF MANUAL Blastocytes 2 % Toxic Granulation 2+ Dohle Bodies PRESENT Platelet Estimate LOW Platelet Morphology Comment NORMAL Culture Results Microbiology Date/Time Source Procedure Growth Status 03/25/17 20:43 Stool Stool Cyclospora Exam - Final NO CYCLOSPORA SEEN Resulted 03/25/17 20:43 Stool Stool Cryptosporidium Exam Pending Resulted 03/25/17 20:43 Stool Stool Stool Pus (ROMINA) - Final MANY WBC'S Resulted 03/25/17 20:43 Stool Stool Giardia Antigen (ROMINA) Pending Resulted 03/25/17 20:43 Stool Stool - Final NO ENTERIC PATHOGENS DETECTED BY PCR... Complete 03/25/17 20:43 Stool Stool Stool Occult Blood (ROMINA) - Final HEMOCCULT POSITIVE Complete Administered Medications Medications (Trade) Dose Ordered Sig/Jacinda Route PRN Reason Start Time Stop Time Status Last Admin Dose Admin Lorazepam (Ativan) 0.5 mg DAILY PRN PO anxiety or before procedure 03/25/17 15:45 03/26/17 23:58 Oxycodone HCl (Roxicodone) 5 mg Q3H PRN PO PAIN SCALE 4 TO 7 03/25/17 15:45 03/27/17 03:41 Acetaminophen (Tylenol) 650 mg Q4H PRN PO PAIN SCALE 0-3 OR TEMP> 100.5F 03/25/17 15:45 03/26/17 19:48 Sodium Chloride (NS Flush) 5 ml UNSCH PRN IVF SEE PROTOCOL 03/25/17 16:00 03/27/17 09:48 Pantoprazole Sodium (Protonix) 20 mg DAILY PO 03/25/17 16:30 03/28/17 09:57 Sodium Chloride 1,000 ml @ 84 mls/hr [id number] IV 03/27/17 11:15 03/27/17 21:58 Levofloxacin (Levaquin) 500 mg DAILY PO 03/28/17 09:00 03/28/17 09:57 Sumatriptan Succinate (Imitrex) 50 mg DAILY PRN PO MIGRAINE HEADACHE 03/27/17 12:15 03/27/17 22:02 Objective Remarks GENERAL: Middle aged female sitting up in bed in nad. In good spirits today. SKIN: Warm and dry. HEAD: Normocephalic. EYES: No injection or drainage. NECK: Supple, trachea midline. CARDIOVASCULAR: Regular rate and rhythm RESPIRATORY: Breath sounds equal bilaterally. No accessory muscle use. GASTROINTESTINAL: Abdomen soft, non-tender, nondistended. EXTREMITIES: No cyanosis NEUROLOGICAL: awake and alert, normal speech. moving all extremities. Assessment/Plan Problem List: (1) Breast cancer ICD Codes: C50.919 - Malignant neoplasm of unspecified site of unspecified female breast Plan: plan for outpatient therapy --first cycle of chemotherapy was administered on March 19, 2017. --received an On-body injector of Neulasta for support. --as felt unwell since her chemotherapy. --A day prior to her admission she complains of fever at night. She had abdominal cramps lasting all night long that kept her awake. --has abdominal cramps and a mucous type discharge from her stool. There is some blood tinge in the mucous discharge from her stool. (2) Pancytopenia ICD Codes: D61.818 - Other pancytopenia Plan: --03/28: continue Levaquin --fever, abdominal cramps and diarrhea. --blood cultures no growth --stool cultures pending (3) Diarrhea ICD Codes: R19.7 - Diarrhea, unspecified Plan: --GI following. --stool studies pending Assessment 61y/o female with newly diagnosed with a stage IIA, T1c N1a M0, ER positive left breast cancer. She had intermediate risk Oncotype DX testing and has elected to receive adjuvant chemotherapy. Admitted for neutropenia. Hypothyroidism. Osteoarthritis. Osteoporosis. ER positive left breast cancer. Plan 1. continue Levaquin 2. stop IVF Attending Statement The exam, history, and the medical decision-making described in the above note were completed with the assistance of the mid-level provider. I reviewed and agree with the findings presented. I attest that I had a [id number] encounter with the patient on the same day, and personally performed and documented my assessment and findings in the medical record. Feels well, ready to go home, afebrile this AM, no longer neutropenic. Wants to follow up with her GI Dr. Wong Victor. MRI brain reassuring. GAYLE pereira/ Dr. Alves her neurologist for migraine. Keep fu appt. Problem Qualifiers (1) Diarrhea: Qualified Codes: A09 - Infectious gastroenteritis and colitis, unspecified Lexy Verdugo Mar 28, 2017 10:06 Sofía Sigala MD Mar 28, 2017 14:18
[2017-03-28] MEDS ORDERED: LEVA500T33 PO (11:40)
--- NOTE | 2017-03-28 11:41 | HHI.DCPOC ---
Discharge Care Plan Diagnosis: (1) Breast cancer (2) Pancytopenia Goals to Promote Your Health * To prevent worsening of your condition and complications * To maintain your health at the optimal level Directions to Meet Your Goals Take your medications as prescribed Follow your dietary instruction Follow activity as directed Keep your appointments as scheduled Take your immunizations and boosters as scheduled If your symptoms worsen call your PCP, if no PCP go to Urgent Care Center or Emergency Room Smoking is Dangerous to Your Health. Avoid second hand smoke Call the 24-hour hour crisis hotline for domestic abuse at Lexy Verdugo Mar 28, 2017 11:41
--- NOTE | 2017-03-28 11:57 | HHI.DS ---
Lexy Verdugo 03/28/17 1156: Discharge Summary Admission Date Mar 25, 2017 at 15:37 Discharge Date: Mar 28, 2017 Admitting Diagnosis Breast Cancer, Neutropenic fever (1) Breast cancer ICD Codes: C50.919 - Malignant neoplasm of unspecified site of unspecified female breast (2) Pancytopenia ICD Codes: D61.818 - Other pancytopenia Brief History 61-year-old female with newly diagnosed stage IIA left breast cancer. She received her first cycle of chemotherapy on March 19, 2017 with subsequent Neulasta injection and has felt unwell since her chemotherapy. She has had abdominal cramps and stool with mucous discharge and possible blood. She was admitted to the hospital for neutropenic fever and abdominal cramping. CBC/BMP: 03/28/17 0510 03/27/17 0537 Significant Findings Laboratory Tests Test 03/25/17 20:43 03/26/17 03:35 03/27/17 05:37 03/28/17 05:10 White Blood Count 3.3 TH/MM3 (4.0-11.0) 16.9 TH/MM3 (4.0-11.0) 14.9 TH/MM3 (4.0-11.0) Red Blood Count 3.52 MIL/MM3 (4.00-5.30) 3.41 MIL/MM3 (4.00-5.30) 3.56 MIL/MM3 (4.00-5.30) Hemoglobin 10.8 GM/DL (11.6-15.3) 10.6 GM/DL (11.6-15.3) 10.8 GM/DL (11.6-15.3) Hematocrit 32.3 % (35.0-46.0) 31.3 % (35.0-46.0) 32.4 % (35.0-46.0) Platelet Count 68 TH/MM3 (150-450) 92 TH/MM3 (150-450) 115 TH/MM3 (150-450) Monocytes (%) (Auto) 26.5 % (0.0-8.0) Neutrophils # (Auto) 1.3 TH/MM3 (1.8-7.7) 12.2 TH/MM3 (1.8-7.7) Neutrophils % (Manual) 5 % (16-70) Band Neutrophils % 25 % (0-6) 28 % (0-6) 15 % (0-6) Monocytes % 24 % (0-8) Neutrophils # (Manual) 1.2 TH/MM3 (1.8-7.7) 14.2 TH/MM3 (1.8-7.7) 13.0 TH/MM3 (1.8-7.7) Metamyelocytes 3 % (0-1) 7 % (0-1) 5 % (0-1) Myelocytes 2 % (0-0) 4 % (0-0) 5 % (0-0) Promyelocytes 1 % (0-0) 1 % (0-0) Dohle Bodies PRESENT (NONE SEEN) PRESENT (NONE SEEN) PRESENT (NONE SEEN) Platelet Estimate LOW (NORMAL) LOW (NORMAL) LOW (NORMAL) Platelet Morphology Comment ENLARGED (NORMAL) Total Protein 5.5 GM/DL (6.4-8.2) 5.7 GM/DL (6.4-8.2) Albumin 2.6 GM/DL (3.4-5.0) 2.4 GM/DL (3.4-5.0) Calcium Level 8.1 MG/DL (8.5-10.1) 8.2 MG/DL (8.5-10.1) Aspartate Amino Transf (AST/SGOT) 9 U/L (15-37) 13 U/L (15-37) Lipase 52 U/L (73-393) Toxic Granulation 2+ (NORMAL) 2+ (NORMAL) Blood Urea Nitrogen 6 MG/DL (7-18) Total Bilirubin 0.1 MG/DL (0.2-1.0) Chloride Level 109 MEQ/L (98-107) Estimat Glomerular Filtration Rate 88 ML/MIN (>89) Neutrophils (%) (Auto) 81.6 % (16.0-70.0) Monocytes # (Auto) 1.1 TH/MM3 (0-0.9) Lymphocytes % 6 % (9-44) Blastocytes 2 % (0-0) Imaging Last Impressions Brain MRI 03/27/17 0000 Signed Impressions: Service Date/Time: Monday, March 27, 2017 11:00 - CONCLUSION: Normal examination. Kannan Worthington MD Chest X-Ray 03/25/17 0000 Signed Impressions: Service Date/Time: March 18:44 - CONCLUSION: No acute disease. Talat Mazariegos MD Abdomen X-Ray 03/25/17 0000 Signed Impressions: Service Date/Time: March 18:41 - CONCLUSION: No acute disease. Talat Mazariegos MD PE at Discharge please see physical exam from progress note on date of discharge Hospital Course Patient was admitted on 03/25/17 with neutropenic fever and diarrhea with mucous and possible blood tinged. Blood cultures were obtained at the clinic and she was started on antibiotic therapy with Cefepime. She was given IVF. Gastroenterology was consulted for her mucous stools. Stool cultures were sent off. Patient's WBC recovered on 03/27/17 and she was transitioned from IV to PO antibiotics. On March 28, she reported feeling much improved. Blood cultures have remained negative for three days. She is being discharged in good condition with instructions for follow up with GI and oncology next week. Pt Condition on Discharge: Good Discharge Disposition: Discharge Home Discharge Instructions DIET: Follow Instructions for: As Tolerated, No Restrictions Activities you can perform: Regular-No Restrictions Sofía Sigala MD 03/28/17 1419: Discharge Summary CBC/BMP: 03/28/17 0510 03/27/17 0537 Lexy Verdugo Mar 28, 2017 11:56 Sofía Sigala MD Mar 28, 2017 14:19
[2017-03-28] MEDS ORDERED: SODIUM CHLORIDE 0.9% FLUSH 10 ML FLUSH IV FLUSH PRN (14:00)
== END 2017-03-28 14:39 | disposition home or self-care (01) | DRG 809 ==
LOC: HCIN 15:37
PROVIDERS: ADMIT Internal Medicine Hematology & Oncology; ATTEND Internal Medicine Hematology & Oncology
DX: D70.9 Neutropenia, unspecified (principal); A09 Infectious gastroenteritis and colitis, unspecified; C50.912 Malignant neoplasm of unspecified site of left female breast; R15.9 Full incontinence of feces; E86.0 Dehydration; R63.0 Anorexia; R50.81 Fever presenting with conditions classified elsewhere; E03.9 Hypothyroidism, unspecified; M19.90 Unspecified osteoarthritis, unspecified site; M81.0 Age-related osteoporosis without current pathological fracture; Z17.0 Estrogen receptor positive status [ER+]; Z80.0 Family history of malignant neoplasm of digestive organs; Z80.3 Family history of malignant neoplasm of breast; R15.2 Fecal urgency; R51 Headache
CPT/HCPCS: 70553; 71020; 74000; 80053; 82272; 83690; 85007; 85027; 87205; 87207; 87328; 87329; 87493; 87506; A9579; J0692; J1650; J7030; J7042